=== PATIENT | female | born 1970 | race Caucasian/White ===

== ENCOUNTER 2024-12-13 12:18 | Emergency (ER) | payer BC, SELFPAY ==
[2024-12-13 12:21] VITALS: BP 135/93
[2024-12-13 12:55] LABS: Hematocrit 46.6 % (37.0-47.0); Hemoglobin 15.7 g/dL (12.0-16.0); Mean Corp Hgb Conc. 33.7 g/dL (33.0-37.0); Mean Corpuscular Volume 95.9 fL (81.0-99.0); Nucleated Red Blood Cells % 0 %; Platelet Count 339 10^3/uL (130-400); Red Cell Dist. Width 12.3 % (11.5-14.5)
[2024-12-13 13:15] LABS: ALT (SGPT) 38 U/L (0-35); AST (SGOT) 29 U/L (14-36); Albumin 4.5 g/dl (3.5-5.0); Alkaline Phosphatase 92 U/L (38-126); Blood Urea Nitrogen 15 mg/dl (7-17); Calcium 9.7 mg/dl (8.4-10.2); Carbon Dioxide 22 mmol/L (22-30); Chloride 103 mmol/L (98-107); Glucose 120 mg/dl (70-99); Potassium 4.2 mmol/L (3.5-5.1); Sodium 139 mmol/L (135-145); Total Protein 7.4 g/dl (6.3-8.2); eGFR > 60.00
[2024-12-13 13:27] LABS: Troponin I < 0.012 ng/ml
[2024-12-13 15:26] VITALS: BP 97/82
--- NOTE | 2024-12-13 15:26 | ED.GENMED ---
History of Present Illness
General
Chief Complaint: Heart Rate Problem
Source: patient
Exam Limitations: none
Time Seen by Provider: 12/13/24 15:25
Nursing documentation reviewed up to this point in time: agreed with
History of Present Illness
History of Present Illness:
Note:
CHIEF COMPLAINT(S)
Dizziness and shakiness following a cat bite on the hand.
HISTORY OF PRESENT ILLNESS
The patient is a 54-year-old female who presented with dizziness and shakiness. The symptoms began after a cat bite on her hand, which occurred when attempting to bring her cat inside. She was bitten and scratched on Tuesday night and sought care at
an urgent care clinic the following morning. At that time, she was prescribed Augmentin (amoxicillin/clavulanate) and has been taking Advil (ibuprofen) for pain and inflammation. Initially, there was significant swelling and redness in the hand,
which made it difficult to move, leading to time off from work. As of today, the swelling has decreased, suggesting some response to the antibiotic, but the patient reported feeling not like herself, experiencing shakiness and dizziness. She also
mentioned feeling numb in certain areas and expressed concern over her symptoms, prompting a visit to the ER. The patient denies any additional symptoms such as stroke-like symptoms or leg swelling. She reports having eaten this morning and taking
her antibiotic. The patients tetanus immunizations are up to date as of 2021.
IMMUNIZATION HISTORY
Tetanus immunization is up to date as of 2021.
PHYSICAL EXAM
General: Alert, no acute distress.
Skin: Warm, dry.
Head: Normocephalic, atraumatic.
Neck: Supple, trachea midline.
Eye Ears, nose, mouth and throat: Oral mucosa moist.
Cardiovascular: Normal peripheral perfusion, No edema.
Respiratory: Respirations are non-labored.
Gastrointestinal: Abdomen nondistended
Back: Normal range of motion, Normal alignment.
Musculoskeletal: Normal ROM, normal strength.
Neurological: Alert and oriented to person, place, time, and situation, No focal neurological deficit observed.
Psychiatric: Cooperative, appropriate mood & affect.
PLAN
The plan includes obtaining laboratory tests and a CT scan of the head to rule out any abnormalities that might explain the patients dizziness and shakiness. The patient agreed to this plan.
DIFFERENTIAL DIAGNOSIS
The Differential Diagnosis includes, in no particular order and is not limited to:
1. Infection or cellulitis due to cat bite
2. Septicemia
3. Allergic reaction to antibiotics
4. Anxiety or panic attack
5. Dehydration
6. Medication side effect (Augmentin or Advil)
7. Blood glucose abnormality
8. Inner ear disorder
9. Neurological disorder
10. Vascular event, such as transient ischemic attack
EKG
My independent EKG interpretation is:
- Time of EKG: Not specified
- Rhythm: Normal sinus rhythm
- Heart rate: 86 bpm
- KS interval: No abnormalities noted
- QRS duration: Normal
- QT interval: Normal
- Abrams: Normal
- Abnormalities observed: None; Normal EKG
Disposition:
SUMMARY OF ENCOUNTER
The patient, a 54-year-old female, presented to the emergency department with dizziness and shakiness following a cat bite on her hand. She had been experiencing numbness in certain areas, alongside the primary symptoms. Her treatment at an urgent
care clinic included Augmentin (amoxicillin/clavulanate) and ibuprofen for pain and inflammation. Upon examination, the patients symptoms suggested no acute distress or neurological deficits. A CT scan of the head was conducted, showing no
abnormalities.
DISPOSITION
Discharge
ASSESSMENT
The patients symptoms, including dizziness and shakiness, lack a clearly defined etiology. There is a doubt about cerebrovascular accident (CVA) or transient ischemic attack (TIA), and no signs of sepsis are present. The patient is stable for
discharge.
PLAN
The plan is for the patient to continue her prescribed course of Augmentin for the recent cat bite and monitor symptoms. No immediate indication for hospital admission.
INDEPENDENT REVIEW OF LABS AND INTERPRETATION OF TESTS
- My independent review of the head CT indicates normal findings.
- My independent review of the neurology exam indicates no focal neurological deficits.
MEDICATION RECONCILIATION
- Augmentin (amoxicillin/clavulanate) to be continued as prescribed.
MEDICAL DECISION MAKING
-Complexity of Data Reviewed:
Chronic conditions affecting care include possible infection from the cat bite. Differential diagnoses include:
1. Infection or cellulitis due to cat bite,
2. Septicemia,
3. Allergic reaction to antibiotics,
4. Anxiety or panic attack,
5. Dehydration,
6. Medication side effect (Augmentin or ibuprofen),
7. Blood glucose abnormality,
8. Inner ear disorder,
9. Neurological disorder,
10. Vascular event, such as transient ischemic attack.
-Data:
Category 1
My independent review of the CT scan of the head shows normal findings.
Category 2
My independent review of the neurology exam indicates no focal neurological deficits.
-Risk:
Prescription medication management with continued use of Augmentin.
Consideration of Admission/Observation: Escalation of care including admission/observation was considered given the complexity and risk of the patients presenting complaint, exam findings, and/or their underlying comorbidities. However, ultimately I
feel the patient is safe for outpatient management with close follow-up. Reasoning: Work-up is reassuring, does not reveal any acute life/organ-threatening processes, patients symptoms are well-controlled upon reevaluation, reexamination is
reassuring, vitals are stable, patient agreeable with discharge, and reliable for follow-up.
DIAGNOSIS
- Dizziness and shakiness (R42)
- Cat bite (T14.0XXA)
- Reaction to medication (unknown etiology, R78.9)
Phy Exam
Physical Exam
Physical Exam:
.
Course
Orders/Labs/Results
Orders:
Orders
12/13/24 12:29
EKG [Electrocardiogram (*1)] Urgent
Reason for Study: Palpitations
12/13/24 12:30
EKG- Treatment ONCE
12/13/24 12:41
Complete Blood Count/With Diff Urgent
Comprehensive Metabolic Panel Urgent
Troponin I Urgent
12/13/24 15:37
CT Head W/o Iv Contrast Urgent
Comment:
Reason For Exam: right leg numbness
Abnormal Lab Results
12/13/24
12:41
MCH 32.3 H pg
(27.0-31.0)
MPV 10.7 H fL
(7.4-10.4)
Glucose 120 H mg/dl
(70-99)
ALT 38 H U/L
(0-35)
12/13/24 12:41
12/13/24 12:41
Vital Signs
Initial and Last Documented VS:
Initial Vital Signs
Temp Pulse Resp BP Pulse Ox
97.8 F 82 16 135/93 99
12/13/24 12:21 12/13/24 12:21 12/13/24 12:21 12/13/24 12:21 12/13/24 12:21
Last Documented Vital Signs
Temp Pulse Resp BP Pulse Ox
97.8 F 72 10 111/93 95
12/13/24 12:21 12/13/24 16:15 12/13/24 16:15 12/13/24 16:00 12/13/24 16:15
*Pulse Oximetry
SaO2: 99
Oxygen Mode of Delivery: Room air
Patient hypoxic: no
*Critical Care Note
Total Time (30-74mins, 75-104mins- exclusive of procedures): Not Applicable
ED Attending Note
-
Portions of this chart may have been created with voice recognition software.� Occasional wrong word or��sound alike� substitutions may have occurred due to the inherent limitations of voice recognition software.
Discharge Plan
Departure
Patient Disposition: Home (Routine Discharge)
Date of Disposition: 12/13/24
Time of Disposition: 17:41
Patient with high blood pressure during this ER visit?: Yes
Condition: Good
Discharge Problem:
Heart palpitations, Paresthesia
Instructions: Palpitations (DC), Peripheral neuropathy, BLOOD PRESSURE
Referrals:
NONE,* [Family Provider, Internal Medicine]
Activity Restrictions/Additional Instructions:
Follow up with primary care in 3-5 days.
Interventions
Interventions:
*Risk Screen - Suicide Last Done: 12/13/24 12:21
*General Assessment Last Done: 12/13/24 12:21
*Neglect/Abuse Screening Last Done: 12/13/24 12:21
*ED- Fall Risk Assessment Last Done: 12/13/24 16:05
*ED COVID-19 Vaccine History Last Done: 12/13/24 12:21
*ED Influenza Vaccine History Last Done: 12/13/24 12:21
*Nursing Disposition Last Done: 12/13/24 18:32
ED- Cardiac Assessment Last Done: 12/13/24 16:05
ED- Pulmonary Assessment Last Done: 12/13/24 16:05
Discharge Date and Time
Discharge Date/Time: 12/13/24 18:35
Print Language: KOREAN
[2024-12-13 16:00] VITALS: BP 111/93
[2024-12-13 16:05] VITALS: BMI 25.2
== END 2024-12-13 18:35 | disposition home or self-care (01) ==
LOC: EMR 12:18
PROVIDERS: Emergency Medicine; EMERGENCY PHYSICIAN Emergency Medicine
DX: R00.2 Palpitations (principal); R20.2 Paresthesia of skin; R03.0 Elevated blood-pressure reading, without diagnosis of hypertension
CPT/HCPCS: 99284; 70450; 80053; 84484; 85025; 93005